=== PATIENT | female | born 1930 | race Caucasian/White ===

== ENCOUNTER → 2016-07-18 | Outpatient (CLI) | payer MEDICARE, BC ==
--- NOTE | 2016-07-18 11:44 | MM ---
Reason for exam: history of breast cancer, conservation therapy. Last mammogram was performed 1 year ago. History: Patient is postmenopausal and has history of breast cancer at age 72. Family history of breast cancer in maternal cousin and breast cancer in maternal aunt. Malignant stereotactic core biopsy of the right breast, May 22, 2003. Benign stereotactic core biopsy of the left breast, November 04, 2001. Core biopsy of the left breast. Core biopsy of the right breast. Lumpectomy of the right breast. Chemotherapy. Radiation therapy of the right breast. Took tamoxifen for 5 years beginning at age 74. Physical Findings: Nurse did not find any significant physical abnormalities on exam. MG 3D Diag Mammo W/Cad JOSELINE Bilateral CC and MLO view(s) were taken. Prior study comparison: July 14, 2015, bilateral MG 3d diag mammo w/cad JOSELINE. July 13, 2014, bilateral MG diagnostic mammo w CAD JOSELINE. July 07, 2013, CAD bilateral diagnostic mammogram. There are scattered fibroglandular densities. No significant new findings when compared with previous films. These results were verbally communicated with the patient and result sheet given to the patient on 07/18/16. ASSESSMENT: Benign, BI-RAD 2 RECOMMENDATION: Routine screening mammogram of both breasts in 1 year.
== END | disposition home or self-care (01) ==
LOC: RADMAMWWP 10:35
PROVIDERS: ATTEND Internal Medicine Hematology & Oncology
DX: Z08 Encounter for follow-up examination after completed treatment for malignant neoplasm (principal); Z85.3 Personal history of malignant neoplasm of breast
CPT/HCPCS: G0204; G0279

== ENCOUNTER → 2016-10-04 | Outpatient (CLI) | payer MEDICARE, BC ==
--- NOTE | 2016-10-04 12:00 | XR ---
EXAMINATION TYPE: XR lumbar spine 2 or 3V DATE OF EXAM: 10/04/2016 10:36 AM CLINICAL HISTORY: Low back pain for 2 years per patient. Spondylosis per order. TECHNIQUE: Frontal and lateral images of the lumbar spine are obtained. COMPARISON: None FINDINGS: Osseous structures are demineralized which is noted to lower radiographic sensitivity. The re are 5 lumbar type vertebral bodies identified. The lumbar spine shows dextroconvex scoliosis cent ered at L3 level. There is loss of normal lumbar lordosis on lateral images. There appears to be grad e 1 anterolisthesis of L5 on S1. Vertebral body heights are maintained. There is advanced disc space narrowing with sclerosis at L1-L2 level. There is moderate to advanced disc space narrowing with mild spurring at L2-L3 level. There i s advanced disc space narrowing with sclerosis and mild spurring at L4-L5 level. There is suboptimal evaluation of L5-S1 level with suspected moderate disc space narrowing. There is facet arthropathy in the lower lumbar spine. There is additional mild to moderate multilevel anterior and lateral spurring most pronounced at left L3-L4 level. Vascular calcification of overlyi ng abdominal aorta is noted.. IMPRESSION: Demineralization with loss of normal lumbar curvature, degenerative and other findings as detailed above.
== END | disposition home or self-care (01) ==
LOC: RADXRMAIN 10:11
PROVIDERS: ATTEND Internal Medicine
DX: M48.06 Spinal stenosis, lumbar region (principal); M46.86 Other specified inflammatory spondylopathies, lumbar region; M41.9 Scoliosis, unspecified
CPT/HCPCS: 72100

== ENCOUNTER → 2016-10-10 | Outpatient (CLI) | payer MEDICARE, BC ==
[~2016-10-10] MED LIST: REGADENOSON 0.4 MG/5 ML SYRINGE IV ONE
--- NOTE | 2016-10-10 12:13 | NM ---
EXAMINATION TYPE: NM stress lexiscan cardiolite DATE OF EXAM: 10/10/2016 11:33 AM COMPARISON: NONE HISTORY: Abnormal EKG per order. Family history of coronary artery disease and personal history of hy pertension. TECHNIQUE: After the intravenous administration of 9.6 mCi Tc 99m Sestamibi - Cardiolite resting SPE CT images acquired 45 minutes post injection. The patient received 0.4mg Lexiscan, 26.7 mCi Tc 99m Sestamibi - Stress images obtained [address] injection FINDINGS: Review of stress and rest SPECT images demonstrates no distinct perfusion abnormality. Gated analysi s shows normal wall motion with an estimated left ventricular ejection fraction of 73 %. IMPRESSION: No scintigraphic evidence for reversible ischemia.
--- NOTE | 2016-10-10 14:13 | EST ---
DATE OF SERVICE: 10/10/2016 AGE: 86Y SEX: F HT: 62" WT: 160 lbs. Lexiscan Cardiolite Stress Test *Heart Rate Blood Pressure *Rest: 67 Rest: 135/80 * *Max. Achieved: 88 Maximum BP: 171/84 85% PMHR: 113 100% PMHR: 133 *METS: - INDICATIONS: Abnormal EKG. MEDICATIONS: Lotrel, aspirin. Baseline rhythm is sinus mechanism, rate of 67, normal axis and intervals, poor R-wave progression. Baseline blood pressure 135/80 mmHg. Patient received an injection of Lexiscan. Electrocardiograph monitoring revealed no evidence of diagnostic ischemic ST deviation. Cardiolite was injected per protocol. CONCLUSION: 1. Nondiagnostic electrocardiograph stress testing. 2. Nuclear images will be reported separately.
== END | disposition home or self-care (01) ==
LOC: RADNMMAIN 08:43
PROVIDERS: ATTEND Internal Medicine
DX: I21.09 ST elevation (STEMI) myocardial infarction involving other coronary artery of anterior wall (principal)
CPT/HCPCS: 93017; 78452; A9500; J2785

== ENCOUNTER → 2016-12-18 | Outpatient (CLI) | payer MEDICARE, BC ==
[2016-12-18 12:12] VITALS: BP 133/80; PULSE 74; RESP 16; TEMP 96.9
--- NOTE | 2016-12-18 12:51 | P.HPIM ---
History of Present Illness H&P Date: 12/18/16 Chief Complaint: low back and left leg pain This is a 86-year-old patient referred by Dr. Be for chronic pain in low back and LLE with some numbness/tingling in LLE. Patient has been taking medications from primary care physician including only Tylenol medications with some relief. Patient denies adverse drug effects from medications. Patient also denies new-onset weakness, bowel/bladder incontinence, or any other signs or symptoms of cauda equina syndrome. There are no signs of acute intoxication, and no indications of medication diversion or overuse. Patient notes that pain worsens significantly with standing and walking, and improves with sitting, rest, ice and medication. Patient has used several types of medications for pain, including NSAIDS, TRAMADOL. Patient HAS NOT had surgery. Patient HAS NOT had injections previously. Patient HAS NOT had physical therapy recently but states that it did not help her previously. In addition to above, 13-point review of systems is also negative for chest pain , shortness of breath, changes in vision, changes in hearing, new onset weakness , abdominal pain, diarrhea, extreme fatigue, malaise, fever, skin changes, homicidal or suicidal ideation, or bowel or bladder incontinence. Vital Signs: Reviewed in EMR Gen: WDWN, AAOx3, NAD HEENT: NCAT, EOMI, hearing grossly normal Pulm: resp unlabored Abd: soft, NT, ND Neck: supple, trachea midline ROM in flexion lumbar spine: reduced ROM in extension lumbar spine: reduced Lumbar paravertebral tenderness: + Facet loading: +bilateral SI joint tenderness: + L side Julian's test: + L side Straight leg raise: + LLE at 5 degrees Neuro: CN II-XII grossly intact, muscle strength lower extremities decreased bilaterally Past Medical History Past Medical History: Cancer, Hearing Disorder / Deafness, Hyperlipidemia, Hypertension, Osteoarthritis (OA) Additional Past Medical History / Comment(s): RIGHT BREAST CANCER IN 2002. DIVERTICULITIS. History of Any Multi-Drug Resistant Organisms: None Reported Past Surgical History: Appendectomy, Bladder Surgery, Breast Surgery, Hysterectomy, Orthopedic Surgery Additional Past Surgical History / Comment(s): BILATERAL CATARACT SURGERY. RIGHT BREAST LUMPECTOMY. Past Anesthesia/Blood Transfusion Reactions: No Reported Reaction Past Psychological History: No Psychological Hx Reported Smoking Status: Never smoker Past Alcohol Use History: Rare Past Drug Use History: None Reported - Past Family History Mother Additional Family Medical History / Comment(s): "HEART PROBLEMS". Medications and Allergies Home Medications Medication Instructions Recorded Confirmed Type Acetaminophen [Tylenol] 500 mg PO HS PRN 12/18/16 12/18/16 History Aspirin 325 mg PO DAILY 12/18/16 12/18/16 History Cranberry Fruit Extract [Cranberry] 500 mg PO DAILY 12/18/16 12/18/16 History Melatonin 10 mg PO HS PRN 12/18/16 12/18/16 History Multivitamin [Multiple Vitamins] 1 tab PO DAILY 12/18/16 12/18/16 History Non-Formulary Drug [Non Formulary 1 tab PO BID 12/18/16 12/18/16 History Drug] amLODIPine BESYLATE/BENAZEPRIL 1 tab PO DAILY 12/18/16 12/18/16 History [Lotrel 10-40 mg Capsule] Allergies Allergy/AdvReac Type Severity Reaction Status Date / Time amoxicillin Allergy Nausea Unverified 12/18/16 11:46 Physical Exam Vitals: Vital Signs Temp Pulse Resp BP Pulse Ox 12/18/16 12:00 96.9 F L 74 16 133/80 100 Intake and Output 12/17/16 12/18/16 12/18/16 22:59 06:59 14:59 Other: Weight 72.575 kg Patient Weight 12/19/16 06:59 Weight 72.575 kg Results Comments: MRI lumbar spine demonstrates moderate to severe spinal canal stenosis at the L4 -L5 level with left and right neural foraminal stenosis. At the L2-L3 and L3- L4 levels there are diffuse disc bulges with facet arthropathy in both locations. At the L5-S1 level there is hypertrophic facet arthropathy with ligamentum flavum thickening and grade 1 anterolisthesis. There is also degenerative first S-shaped scoliosis of the lumbar spine with associated facet arthropathy and ligamentum flavum thickening noted. 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 Explanation: Opioid and psychological risk scores were reviewed. Diagnoses , prognoses, and multiple treatment options including but not limited to physical therapy, interventional therapies, adjuvant medical therapies, narcotic medication therapies, and surgery were discussed with the patient and all questions were answered to the patient's satisfaction. 2. Opioid agreement: no opioids prescribed today 3. Counseling: The patient was counseled extensively on BODY MASS INDEX, EXERCISE. Specifically, the patient was instructed regarding the importance of obesity, and exercise in the context of both chronic pain and overall health. 4. Procedures: LESI series (L4-L5 if possible, but L5-S1 OK if scoliosis makes procedure technically difficult) 5. Consultations: none 6. Investigations: none 7. Medications: none prescribed 8. Disposition: f/u for procedure as scheduled (patient to stop ASA for 4-5 days) PQRS measures: 1-Patient's medications are documented in the chart. 2-Tobacco use is negative, counseling given 3-Patient has not had a pneumococcal vaccine. 4-Advanced care planning discussed, patient unable to give. 5-Opioid contract NOT signed with the patient as no opioids given. 6-Pain positive, follow-up visit or procedure scheduled 7-Patient's blood pressure measured and documented, and patient will follow up with the primary care due to hypertension. 8-Patient's weight was measured, and body mass index ABOVE the normal limits, and counseling was done. Patient instructed to follow up with PCP. 9-Patient WAS NOT identified as an unhealthy alcohol user. Time with Patient: Greater than 30
== END | disposition home or self-care (01) ==
LOC: PNWHC3 11:41
PROVIDERS: ATTEND Anesthesiology
DX: M48.06 Spinal stenosis, lumbar region (principal); M99.73 Connective tissue and disc stenosis of intervertebral foramina of lumbar region; M47.816 Spondylosis without myelopathy or radiculopathy, lumbar region; M41.9 Scoliosis, unspecified; Z79.82 Long term (current) use of aspirin; Z79.899 Other long term (current) drug therapy; Z88.0 Allergy status to penicillin
CPT/HCPCS: 99211

== ENCOUNTER 2016-12-22 08:54 | Day surgery (SDC) | payer MEDICARE, BC ==
[2016-12-20 13:31] VITALS: BMI 28.3
[~2016-12-22 08:54] MED LIST changes: +LACTATED RINGERS 1,000 ML IV SCH; -REGADENOSON 0.4 MG/5 ML SYRINGE IV ONE
[2016-12-22 09:20] VITALS: TEMP 97.2
[2016-12-22] MEDS ORDERED: LIDOCAINE 1% 20 ML VIAL (10MG/ML) FOR IV START INTRADERMA ONE (09:24)
[2016-12-22] MEDS ORDERED: IOHEXOL 180 MG/ML 1 ML ML ONE (10:16)
[2016-12-22] MEDS ORDERED: MIDAZOLAM 2 MG/2 ML VIAL ONE (10:16)
[2016-12-22] MEDS ORDERED: fentaNYL (PF) 50 MCG/ML 2 ML AMP ONE (10:16)
[2016-12-22] MEDS ORDERED: DEXAMETHASONE SOD PHOS (MDV) 100 MG/10 ML VIAL ONE (10:16)
--- NOTE | 2016-12-22 10:35 | P.PCN ---
Date of Procedure: 12/22/16 Preoperative Diagnosis: Postoperative Diagnosis: Procedure(s) Performed: PREOPERATIVE DIAGNOSIS: 1- Lumbar Degenerative Disc Diseases 2-Lumbar spondylosis with Facet arthropathy without myelopathy. 3-lumbar spinal stenosis POSTOPERATIVE DIAGNOSIS: 1-Lumber Degenerative Disc Diseases 2-Lumbar spondylosis with Facet arthropathy without myelopathy. 3-lumbar spinal stenosis PROCEDURE 1. Lumbar epidural steroid injection under fluoroscopic guidance at the L5-S1 level. 2. Lumbar epidurogram. ANESTHESIA: Local with 1% lidocaine 3 ml and IV sedation with Versed 1 mg , and fentanyle 50 Mcg EBL: Minimal PROCEDURE INDICATION: The patient with low back pain and radiculitis symptoms unresponsive to conservative treatment. Fluoroscopy was used to optimize visualization of the needle placement and to maximize safety. PROCEDURE DESCRIPTION / TECHNIQUE: The patient was seen and identified in the preoperative area. Risks, benefits , complications including but not limited to infections ,bleeding ,allergic reaction to the medications ,nerve damage and not complete pain releife , and alternatives were discussed with the patient. The patient agreed to proceed with the procedure and signed the consent. IV was started, and vital signs were stable. Patient was taken to the OR and time out was completed. The patient was placed in the prone position on procedure table and a pillow was placed under the abdomen to reduce lumbar lordosis. The lumbosacral area was prepped and draped in the usual sterile fashion.ere closely monitored during the procedure. Conscious sedation was used during the procedure to decrease patients anxiety. Vital signs was monitered during the entire procedure. Using anterior-posterior fluoroscopy, the L5-S1 interlaminar space was identified and the skin over this site was marked and then infiltrated with 1% lidocaine subcutaneously. Subsequently, a 20-gauge Tuohy epidural needle was inserted and advanced toward the epidural space using the ``Loss of resistance technique and guided by AP and lateral fluoroscopy. The correct needle position in the epidural space was verified with the injection of 2 mL of the water soluble contrast dye Omnipaque 180 contrast and observing an excellent epidurogram with the epidural spread of the dye, after negative aspiration for blood and CSF and in the absence of paresthesias. Again after negative aspiration, a 6 ml mixture containing 20 mg of Dexamethasone and 2 ml of preservative free Normal Saline, and 2 ml of preservative free lidocaine 1% solution was injected and a washout of epidurogram was seen. Needle was withdrawn intact, skin was cleansed, and bandages were applied. COMPLICATIONS: None DISPOSITION / PLANS: The patient was placed in a supine position and transferred to the recovery area in a stable condition for observation. There was no evidence of lower extremity motor or sensory deficit after the procedure. Patient was discharged from the recovery room after meeting discharge criteria. Home discharge instructions were given to the patient by the staff. The patient was reexamined prior to discharge. The patient will schedule a follow up in the clinic in 2-4 weeks. Implants: Indications for Procedure: Operative Findings: Description of Procedure:
--- NOTE | 2016-12-22 10:47 | FL ---
EXAMINATION TYPE: FL guided pain mgmt statistic DATE OF EXAM: 12/22/2016 CLINICAL HISTORY: Low back pain. TECHNIQUE: Fluoroscopy. COMPARISON: None. FINDINGS: Fluoroscopic guidance was provided during pain relief procedure performed by Dr. Yanez . A total of 1 seconds of fluoroscopic time was utilized during the procedure and 1 spot image is ac quired. Single image acquired shows needle localization at L5 level in lumbar spine. IMPRESSION: As Above.
[2016-12-22] MEDS ORDERED: IV FLUID CONTINUATION 750 ML IV ONE (10:51)
[2016-12-22 10:56] VITALS: RESP 18
[2016-12-22 11:01] VITALS: BP 125/65; PULSE 64
== END 2016-12-22 11:18 | disposition home or self-care (01) ==
LOC: ORPAIN 08:54
PROVIDERS: ATTEND Specialist
DX: M51.16 Intervertebral disc disorders with radiculopathy, lumbar region (principal); M47.26 Other spondylosis with radiculopathy, lumbar region; M48.06 Spinal stenosis, lumbar region; M99.73 Connective tissue and disc stenosis of intervertebral foramina of lumbar region; M41.9 Scoliosis, unspecified; M46.96 Unspecified inflammatory spondylopathy, lumbar region; I10 Essential (primary) hypertension; E78.5 Hyperlipidemia, unspecified; M19.90 Unspecified osteoarthritis, unspecified site; H91.90 Unspecified hearing loss, unspecified ear; Z88.0 Allergy status to penicillin; Z79.82 Long term (current) use of aspirin; Z79.899 Other long term (current) drug therapy; Z85.3 Personal history of malignant neoplasm of breast; Z90.49 Acquired absence of other specified parts of digestive tract; Z90.710 Acquired absence of both cervix and uterus
CPT/HCPCS: 62323; 99152; J2250; Q9965; J3010; J1100

== ENCOUNTER 2017-01-25 07:46 | Day surgery (SDC) | payer MEDICARE, BC ==
[2017-01-23 10:03] VITALS: BMI 29.2
[2017-01-25 08:18] VITALS: RESP 16
--- NOTE | 2017-01-25 08:57 | P.PCN ---
Date of Procedure: 01/25/17 Preoperative Diagnosis: Left lumbar radiculopathy Postoperative Diagnosis: Same as above Procedure(s) Performed: Lumbar epidural steroid injection under fluoroscopic guidance Implants: Anesthesia: MAC, other (local with IV sedation) Surgeon: German Williamson Pathology: none sent Condition: stable Disposition: PACU Indications for Procedure: Operative Findings: Description of Procedure: Patient was seen in preop holding area consent was obtained. The patient then was brought into the procedure room and placed in prone position. Skin was prepped with Betadine 3 and draped in a sterile manner. Lidocaine 1% percent was used to numb the skin at the target point. I tried to get into the epidural space at the L4 5 level but the patient has severe spondylosis and I could not do that at the L4 5 then I decided to do this injection at the L5-S1 level in the left paramedian approach. I used 20-gauge 3-1/2 inch Touhy epidural needle with [id number] to air to identify the epidural space. There was positive [id number] to air at about 6 cm from skin negative aspiration for any CSF or blood and negative paresthesia. I then injected 1 mL of Omnipaque which showed typical epidurogram with AP and lateral views of fluoroscopy after that I injected 40 mg of Kenalog +2 MLS of Marcaine 0.25% +3 MLS of posterior free normal saline to a total volume of 6 MLS in epidural space. Patient tolerated procedure well.
--- NOTE | 2017-01-25 09:05 | FL ---
EXAMINATION TYPE: FL guided pain mgmt statistic DATE OF EXAM: 01/25/2017 FLUOROSCOPY Fluoroscopy time of 12 seconds was used during lumbar epidural steroid injection. 1 image/s document /s the procedure.
[2017-01-25] MEDS ORDERED: IV FLUID CONTINUATION 1,000 ML IV ONE (09:19)
[2017-01-25 09:33] VITALS: BP 117/73; PULSE 62
--- NOTE | 2017-01-29 09:55 | CDI ---
Dear Dr. Williamson, What type of sedation was used during this procedure? Your Procedure Note states "MAC, other". Please provide more specificity, such as moderate conscious sedation. IF moderate conscious was used, then we will need a completeted Pain Procedure Record with the correct Anesthesia Plan box checked and a Proc Stop time. This information is needed for correct reporting purposes. Please contact the hairmasters manager if you do not understand what is needed from you--Jovita Johnston [phone]. Thank you, Patrica CORREA
--- NOTE | 2017-02-23 15:32 | CDI ---
Dear Dr. Williamson, Thank you for your first query response that stated moderate conscious sedation was used, but we still need more information. We code and bill for the length of time the patient was under moderate conscious sedation. We calculate this time based off of the time that fentanyl/versed was given and until the procedure stop time. The procedure stop time is blank on the Pain Procedure Record. What time did the procedure end? Please contact the medical coding auditor if you do not understand what is needed from you--Jovita Johnston [phone]. Thank you, Patrica CORREA
== END 2017-01-25 09:55 | disposition home or self-care (01) ==
LOC: ORPAIN 07:46
PROVIDERS: ATTEND Anesthesiology
DX: M47.26 Other spondylosis with radiculopathy, lumbar region (principal); I10 Essential (primary) hypertension; Z91.09 Other allergy status, other than to drugs and biological substances
CPT/HCPCS: 62323; 99152; 99153; J2250; J3301; J3010

== ENCOUNTER 2017-02-22 07:20 | Day surgery (SDC) | payer MEDICARE, BC ==
[2017-02-16 15:17] VITALS: BMI 29.2
[2017-02-22] MEDS ORDERED: LIDOCAINE 1% 20 ML VIAL (10MG/ML) FOR IV START INTRADERMA ONE (07:39)
[2017-02-22] MEDS ORDERED: LACTATED RINGERS 1,000 ML IV ONE ×2 (07:41→09:42)
[2017-02-22 07:57] VITALS: TEMP 97.8
[2017-02-22] MEDS ORDERED: LACTATED RINGERS 1,000 ML IV SCH (08:15)
--- NOTE | 2017-02-22 09:17 | FL ---
EXAMINATION TYPE: FL guided pain mgmt statistic DATE OF EXAM: 02/22/2017 CLINICAL HISTORY: Low back pain. TECHNIQUE: Fluoroscopy. COMPARISON: None. FINDINGS: Fluoroscopic guidance was provided during pain relief procedure performed by Dr. Lai . A total of 12 seconds of fluoroscopic time was utilized during the procedure and two spot images are acquired. Images acquired shows needle localization at lumbosacral junction epidural space. IMPRESSION: As Above.
[2017-02-22 09:37] VITALS: BP 136/75; PULSE 59; RESP 18
--- NOTE | 2017-02-22 12:24 | P.PCN ---
Date of Procedure: 02/22/17 Preoperative Diagnosis: Postoperative Diagnosis: Procedure(s) Performed: Implants: Surgeon: Dewayne Lai Pathology: none sent Condition: stable Disposition: PACU Indications for Procedure: Operative Findings: Description of Procedure: PREOPERATIVE DIAGNOSIS: 1-Lumbar radiculitis. POSTOPERATIVE DIAGNOSIS: 1-Lumbar radiculitis. PROCEDURE 1. Lumbar epidural steroid injection under fluoroscopic guidance at the L5-S1 level. 2. Lumbar epidurogram. ANESTHESIA: Local with 1% lidocaine; IV sedation with Versed/fentanyl. EBL: Minimal PROCEDURE INDICATION: The patient with low back pain and radiculitis symptoms unresponsive to conservative treatment. Fluoroscopy was used to optimize visualization of the needle placement and to maximize safety. Two weeks' relief from LESI #1 and #2 apiece, and patient presents for LESI #3 today. No use of blood thinners. PROCEDURE DESCRIPTION / TECHNIQUE: The patient was seen and identified in the preoperative area. Risks, benefits, complications, and alternatives were discussed with the patient, including but not limited to bleeding, infection, nerve damage, allergic reactions to medications, and incomplete pain relief. The patient agreed to proceed with the procedure and signed the consent after all questions were answered. IV was started, and vital signs were stable. Patient was taken to the OR and time out was completed to confirm patient position, procedure, laterality of pain, and allergies. The patient was placed in the prone position on procedure table and a pillow was placed under the abdomen to reduce lumbar lordosis. The lumbosacral area was prepped and draped in the usual sterile fashion. Critical pause was taken. Vital signs were closely monitored during the procedure. Conscious sedation was used during the procedure to decrease patients anxiety. Using anterior-posterior fluoroscopy, the L5-S1 interlaminar space was identified and the skin over this site was marked and then infiltrated with 1% lidocaine subcutaneously. Subsequently, a 20-gauge 3.5-inch Tuohy epidural needle was inserted and advanced toward the epidural space using the Loss of resistance technique and guided by AP and lateral fluoroscopy. The correct needle position in the epidural space was verified with the injection of 2 mL of the water soluble contrast dye Omnipaque 300 contrast and observing an excellent epidurogram with the epidural spread of the dye, after negative aspiration for blood and CSF and in the absence of paresthesias. Again after negative aspiration, a 8 ml mixture containing 20 mg of PF Decadron and 5 ml of preservative free Normal Saline, and 2 ml of preservative free lidocaine 1% solution was injected and a washout of epidurogram was seen. Needle was withdrawn intact, skin was cleansed, and bandages were applied. COMPLICATIONS: None COMMENTS: DISPOSITION / PLANS: The patient was placed in a supine position and transferred to the recovery area in a stable condition for observation. There was no evidence of lower extremity motor or sensory deficit after the procedure. Patient was discharged from the recovery room after meeting discharge criteria. Home discharge instructions were given to the patient by the staff. The patient was reexamined prior to discharge and there were no issues. The patient will schedule a follow up in the clinic in 2-4 weeks.
== END 2017-02-22 09:53 | disposition home or self-care (01) ==
LOC: ORPAIN 07:20
PROVIDERS: ATTEND Anesthesiology
DX: M54.16 Radiculopathy, lumbar region (principal)
CPT/HCPCS: 62323; J2250; J1100; Q9965; J3010; 99152

== ENCOUNTER → 2017-04-03 | Outpatient (CLI) | payer MEDICARE, BC ==
[2017-04-03 13:16] VITALS: BP 118/74; PULSE 82; RESP 18; TEMP 97.6
--- NOTE | 2017-04-03 13:39 | P.PN ---
Progress Note - Text Patient returns for followup for chronic back pain with radiation to LLE. Patient recently underwent LESI x 3 with only 1-2 days' relief from each. Patient continues on occasional Tylenol medications for pain with some relief. Patient denies adverse drug effects from medications. Today, pt denies new- onset weakness, bowel/bladder incontinence, or any other signs or symptoms of cauda equina syndrome. There are no signs of acute intoxication, and no indications of medication diversion or overuse. In addition to above, 13-point review of systems is also negative for chest pain , shortness of breath, changes in vision, changes in hearing, new onset weakness , abdominal pain, diarrhea, extreme fatigue, malaise, fever, skin changes, homicidal or suicidal ideation, or bowel or bladder incontinence. Vital Signs: Reviewed in EMR Gen: WDWN, AAOx3, NAD HEENT: NCAT, EOMI, hearing grossly normal Pulm: resp unlabored Abd: soft, NT, ND Neck: supple, trachea midline ROM in flexion lumbar spine: reduced ROM in extension lumbar spine: reduced Lumbar paravertebral tenderness: + Facet loading: + L side, neg R side SI joint tenderness: + L side Julian's test: neg Straight leg raise: + LLE at 10 degrees Neuro: CN II-XII grossly intact, muscle strength lower extremities PRESERVED Imaging: Reviewed in EMR Assessment: 1. lumbar spinal stenosis 2. lumbar spondylosis without myelopathy 3. chronic pain syndrome Plan: 1. Explanation: Opioid and psychological risk scores were reviewed. Diagnoses , prognoses, and multiple treatment options including but not limited to physical therapy, interventional therapies, adjuvant medical therapies, narcotic medication therapies, and surgery were discussed with the patient and all questions were answered to the patient's satisfaction. 2. Opioid agreement: no opioids prescribed today 3. Counseling: The patient was counseled extensively on BODY MASS INDEX, EXERCISE. Specifically, the patient was instructed regarding the importance of weight control, and exercise in the context of both chronic pain and overall health. 4. Procedures: left lumbar MBB L2-S1 5. Consultations: None 6. Investigations: None 7. Medications: none prescribed 8. Disposition: f/u for procedure as scheduled PQRS measures: 1-Patient's medications are documented in the chart. 2-Tobacco use is negative 3-Patient has not had a pneumococcal vaccine. 4-Advanced care planning discussed, patient unable to give. 5-Opioid contract NOT signed with the patient. 6-Pain positive, follow-up visit or procedure scheduled 7-Patient's blood pressure measured and documented, and WNL. 8-Patient's weight was measured, and body mass index ABOVE the normal limits, and counseling was done. Patient instructed to follow up with PCP. 9-Patient WAS NOT identified as an unhealthy alcohol user.
== END ==
LOC: PNWHC3 12:57
PROVIDERS: ATTEND Anesthesiology
DX: M48.06 Spinal stenosis, lumbar region (principal); M47.816 Spondylosis without myelopathy or radiculopathy, lumbar region
CPT/HCPCS: 99211

== ENCOUNTER 2017-04-16 06:52 | Day surgery (SDC) | payer MEDICARE, BC ==
[2017-04-10 14:48] VITALS: BMI 28.3
[2017-04-16] MEDS ORDERED: LACTATED RINGERS 1,000 ML IV ONE ×2 (07:45→08:05)
[2017-04-16 08:05] VITALS: TEMP 97.7
[2017-04-16] MEDS ORDERED: LIDOCAINE 1% 20 ML VIAL (10MG/ML) FOR IV START INTRADERMA ONE (08:09)
--- NOTE | 2017-04-16 08:45 | P.PCN ---
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 POSTOPERATIVE DIAGNOSIS: Lumbar spondylosis without myelopathy and facet arthropathy. PROCEDURE DESCRIPTION: Patient presents for LEFT L3-L4, L4-L5 and L5-S1 diagnostic medial branch blocks under fluoroscopic guidance. The procedure is performed using fluoroscopic guidance during needle placement to assure proper position and maximize safety. ANESTHESIA: Local with 1% lidocaine; conscious sedation with Versed only EBL: Minimal PROCEDURE INDICATION: Patient with scoliosis and lumbar facet arthropathy signs and symptoms unresponsive to conservative therapy and LESIs, here for diagnostic medial branch block #1. Pt has been off baby aspirin for five days. PROCEDURE DESCRIPTION: The patient was seen and identified in the preoperative area. Risks, benefits, complications, and alternatives were discussed with the patient (including but not limited to incomplete pain relief, bleeding, infection, nerve damage, and allergies to medications), the patient agreed to proceed with the procedure and signed the consent after all questions were answered. Patient was taken to the OR and time out was completed to verify proper patient, position, laterality of pain, and allergies. Pt was placed in the prone position and a pillow was placed under the abdomen to reduce lumbar lordosis. The lumbosacral area was prepped and draped in the usual sterile fashion. Using oblique fluoroscopy, the eye of the "Eagle dog" of left L4 vertebral body , which corresponds to the path of the medial branch originating from the level above, which is L3 in this case, was identified. Subsequently, a 22-gauge 3.5- inch spinal needle was inserted under fluoroscopic guidance toward the eye of the "Eagle dog" of the right L4 vertebral body, corresponding to the junction of the superior articular process and the transverse process of the pedicle of the same level. After needle tip confirmation on lateral view and after negative aspiration for CSF and blood and without paresthesias, 1 mL of a 6 ml solution of 0.5% preservative-free bupivacaine and 40 mg Kenalog was injected. Subsequently the needle was withdrawn intact and the same procedure was repeated for the left L2, left L4, and left L5 medial branches which correspond to the sensory innervation of the left L3-L4, L4-L5, and L5-S1 facet joints. Needle was withdrawn intact after each injection. At the end of the procedure, the skin was cleansed and bandages were applied. COMPLICATIONS: None. DISPOSITION/PLAN: The patient taken to the recovery area after the procedure in a stable condition for observation. Patient was reexamined prior to discharge and there were no issues. Patient was discharged home, accompanied by an adult, after meeting discharged criteria. Discharge instructions were give to the patient by the staff. Patient was specifically instructed not to drive today and to rest for the rest of the day. If relief, we will plan to repeat this in 4-6 weeks.
[2017-04-16] MEDS ORDERED: IV FLUID CONTINUATION 1,000 ML IV ONE (08:51)
--- NOTE | 2017-04-16 08:58 | FL ---
Fluoroscopy History: l. facet inj-9 sec l. lumbar facets-9 sec-3 paper films
[2017-04-16 09:24] VITALS: BP 146/84; PULSE 64; RESP 16
== END 2017-04-16 09:37 | disposition home or self-care (01) ==
LOC: ORPAIN 06:52
PROVIDERS: ATTEND Anesthesiology
DX: G89.4 Chronic pain syndrome (principal); M47.816 Spondylosis without myelopathy or radiculopathy, lumbar region; M46.96 Unspecified inflammatory spondylopathy, lumbar region; Z88.0 Allergy status to penicillin
CPT/HCPCS: 99152; 64493; 64494; 64495; J2250; J1100

== ENCOUNTER 2017-05-07 08:38 | Day surgery (SDC) | payer MEDICARE, BC ==
[2017-05-02 13:14] VITALS: BMI 28.3
[2017-05-07 09:19] VITALS: RESP 16; TEMP 97.6
[2017-05-07] MEDS ORDERED: LIDOCAINE 1% 20 ML VIAL (10MG/ML) FOR IV START INTRADERMA ONE (09:19)
--- NOTE | 2017-05-07 09:49 | P.PCN ---
Date of Procedure: 05/07/17 Procedure(s) Performed: PREOPERATIVE DIAGNOSIS : 1- Lumbar spondylosis with Facet Arthropathy without myelopathy . 2- Lumber degenerative disc disease POSTOPERATIVE DIAGNOSIS: 1- Lumbar spondylosis with Facet Arthropathy without myelopathy . 2- Lumber degenerative disc disease PROCEDURE: Diagnostic Left L3 -4 , L4 -5 , and L5-S1 medial branch block under fluoroscopy ANESTHESIA: Local with 1% lidocaine 3 ml ; IV sedation with Versed 2 mg EBL: Minimal COMPLICATION: None. IV FLUIDS: 100 mL of normal saline. PROCEDURE INDICATION: Chronic low back pain secondary to Facet arthropathy unresponsive to conservative treatment. PROCEDURE DESCRIPTION: the patient was seen and identified in the preop holding area , risks and benefits and possible complications of the procedure and alternative were discussed with the patient, and the patient agreed to proceed with the procedure and signed the consent IV was started and vital signs monitored during the procedure and fluoroscopy was used to maximize the benefit and accuracy of the needle placement, and sedation was given to decrease patient anxiety, patient was taken to the procedure room and placed in prone position vital signs monitored in the back prepped with chlorhexidine X3 then under strict sterile technique using a right oblique fluoroscopy ,the junction of the transverse process and the superior articulating process of the Left L3- 4 , L4- 5, and L5-S1 vertebra which corresponding to the fluoroscopy image of the eye of the Eagle dog on the block side for the medial branches and subsequently , after local infiltration of skin and subcu tissuies with lidocaine 1% one mL at each level ,then 25- gauge Quincke-type needles , 3 needle was used , each one of them placed at the junction of the base of the transverse process and the superior articular process at the appropriate level, and the needle was advanced until the periosteum contacted, needle placement confirmed with AP oblique and lateral view and after appropriate needle placement confirmed, and after negative aspiration for heme and CSF and there was no paresthesia 1-1/2 mL of Marcaine 0.5% mixed with 40 mg Kenalog , then half mL injected at each level after negative aspiration the needle subsequentely removed , and a bandage applied after the skin was cleaned the cleaning solution patient taken to recovery room in stable condition and monitors in the recovery room for 20-30 minutes and discharged home in stable condition after discharge criteria met and patient will follow up with the pain clinic in 2-4 weeks
[2017-05-07] MEDS ORDERED: IV FLUID CONTINUATION 900 ML IV ONE (09:56)
--- NOTE | 2017-05-07 10:10 | FL ---
EXAMINATION TYPE: FL guided pain mgmt statistic DATE OF EXAM: 05/07/2017 CLINICAL HISTORY: Low back pain. TECHNIQUE: Fluoroscopy. COMPARISON: None. FINDINGS: Fluoroscopic guidance was provided during pain relief procedure performed by Dr. Yanez . A total of 11 seconds of fluoroscopic time was utilized during the procedure and two spot images a re acquired. Images acquired shows needle localization at several levels in the lower lumbar spine. IMPRESSION: As Above.
[2017-05-07 10:14] VITALS: BP 130/79; PULSE 66
== END 2017-05-07 10:35 | disposition home or self-care (01) ==
LOC: ORPAIN 08:38
PROVIDERS: ATTEND Specialist
DX: G89.29 Other chronic pain (principal); M47.816 Spondylosis without myelopathy or radiculopathy, lumbar region; M46.96 Unspecified inflammatory spondylopathy, lumbar region; M51.36 Other intervertebral disc degeneration, lumbar region; I10 Essential (primary) hypertension; K57.92 Diverticulitis of intestine, part unspecified, without perforation or abscess without bleeding; Z88.1 Allergy status to other antibiotic agents
CPT/HCPCS: 64493; 64494; 64495; 99152; J2250; J3301

== ENCOUNTER → 2017-07-20 | Outpatient (CLI) | payer MEDICARE, BC ==
--- NOTE | 2017-07-20 12:11 | MM ---
Reason for exam: additional evaluation requested from prior study. Last mammogram was performed 1 year ago. History: Patient is postmenopausal and has history of breast cancer at age 72. Family history of breast cancer in maternal cousin and breast cancer in maternal aunt. Malignant stereotactic core biopsy of the right breast, May 22, 2003. Benign stereotactic core biopsy of the left breast, November 04, 2001. Core biopsy of the left breast. Core biopsy of the right breast. Lumpectomy of the right breast. Chemotherapy. Radiation therapy of the right breast. Took tamoxifen for 5 years beginning at age 74. Physical Findings: Nurse did not find any significant physical abnormalities on exam. MG 3D Diag Mammo W/Cad JOSELINE Bilateral CC and MLO view(s) were taken. Prior study comparison: July 18, 2016, bilateral MG 3d diag mammo w/cad JOSELINE. July 14, 2015, bilateral MG 3d diag mammo w/cad JOSELINE. Small spiculated density left 12 o'clock 5.8cm from nipple. This finding is changed when compared with previous exams. These results were verbally communicated with the patient and result sheet given to the patient on 07/20/17. ASSESSMENT: Incomplete: need additional imaging evaluation, BI-RAD 0 RECOMMENDATION: Ultrasound of the left breast.
--- NOTE | 2017-07-20 12:13 | USB ---
Reason for exam: additional evaluation requested from abnormal screening. History: Patient is postmenopausal and has history of breast cancer at age 72. Family history of breast cancer in maternal cousin and breast cancer in maternal aunt. Malignant stereotactic core biopsy of the right breast, May 22, 2003. Benign stereotactic core biopsy of the left breast, November 04, 2001. Core biopsy of the left breast. Core biopsy of the right breast. Lumpectomy of the right breast. Chemotherapy. Radiation therapy of the right breast. Took tamoxifen for 5 years beginning at age 74. US Breast Limited LT Left breast ultrasound demonstrates a 10 x 9 x 9mm irregular shadowing hypoechoic solid lesion at 12 o'clock 6cm from nipple. These results were verbally communicated with the patient and result sheet given to the patient on 07/20/17. ASSESSMENT: Highly suggestive of malignancy, BI-RAD 5 RECOMMENDATION: Ultrasound core biopsy of the left breast. Called Dr. Ariza with mammographic findings and has scheduled an appointment for the patient for 07/26/17 at 1:[address] Gomez. PRELIMINARY REPORT CALLED AND FAXED TO DR. GOMEZ ON 07/20/17.
== END | disposition home or self-care (01) ==
LOC: RADMAMWWP 10:40
PROVIDERS: ATTEND Internal Medicine Hematology & Oncology
DX: Z08 Encounter for follow-up examination after completed treatment for malignant neoplasm (principal); Z85.3 Personal history of malignant neoplasm of breast
CPT/HCPCS: 77066; 76642; G0279

== ENCOUNTER → 2017-08-06 | Day surgery (SDC) | payer MEDICARE, BC ==
[2017-08-06 13:25] VITALS: RESP 12
--- NOTE | 2017-08-06 14:29 | USB ---
EXAMINATION TYPE: US biopsy breast VAD LT DATE OF EXAM: 08/06/2017 CLINICAL HISTORY: R92.8 ABN MAMMOGRAM. TECHNIQUE: Ultrasound guided core biopsy of left 12:00 breast. COMPARISON: NONE FINDINGS: The procedure of ultrasound guided core biopsy was explained to the patient. Benefits, alternatives, and risks were discussed. An informed consent was then obtained. The patient was placed in supine positioning for imaging and for the procedure. The overlying skin was prepped and draped in usual sterile fashion. Lidocaine buffered with bicarbonate was used as anesthetic into the skin and subcutaneous tissue up to area of concern in the left breast. A jasmin was made with surgical scalpel. Under ultrasound guidance, a 12-gauge vacuum assisted biopsy gun device was used to obtain 3 core samples. Following this, a biopsy clip was left in lesion. The patient tolerated the procedure well without any immediate complication. The patient was kept in the radiology department for short stay after the procedure and then discharged home in stable condition. IMPRESSION: Successful, uncomplicated ultrasound guided core biopsy of area of concern in the left 12:00 breast, full pathology results to follow. 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 SEE SURGICAL PATHOLOGY CANCER CASE SUMMARY AND COMMENT. Recommendation Surgical consult of the left breast. MADELINE
--- NOTE | 2017-08-06 14:38 | MM ---
Reason for exam: additional evaluation requested from abnormal screening. Last mammogram was performed 1 month ago. History: Patient is postmenopausal and has history of breast cancer at age 72. Family history of breast cancer in maternal cousin and breast cancer in maternal aunt. Malignant stereotactic core biopsy of the right breast, May 22, 2003. Benign stereotactic core biopsy of the left breast, November 04, 2001. Core biopsy of the left breast. Core biopsy of the right breast. Lumpectomy of the right breast. Chemotherapy. Radiation therapy of the right breast. Took tamoxifen for 5 years beginning at age 74. MG Diagnostic Mammo LT Wo CAD CC and MLO view(s) were taken of the left breast. Prior study comparison: July 20, 2017, bilateral MG 3d diag mammo w/cad JOSELINE. July 18, 2016, bilateral MG 3d diag mammo w/cad JOSELINE. ASSESSMENT: Post procedure mammogram for marker placement RECOMMENDATION: Ultrasound of the left breast in 6 months. PENDING PATHOLOGY RESULTS.
[2017-08-06 14:47] VITALS: BP 125/72; PULSE 77; TEMP 98.7
== END | disposition home or self-care (01) ==
LOC: RADUSWWP 13:02
PROVIDERS: ATTEND Surgery
DX: C50.912 Malignant neoplasm of unspecified site of left female breast (principal); Z85.3 Personal history of malignant neoplasm of breast; Z80.3 Family history of malignant neoplasm of breast; Z92.21 Personal history of antineoplastic chemotherapy; Z92.3 Personal history of irradiation
CPT/HCPCS: 88305; 88342; 88341; 77065; 19083; A4648; J2001; 88361

== ENCOUNTER → 2018-03-21 | Outpatient (CLI) | payer MEDICARE, BC ==
--- NOTE | 2018-03-21 11:48 | MM ---
Reason for exam: follow-up at short interval from prior study. Last mammogram was performed 7 months ago. History: Patient is postmenopausal and has history of breast cancer at age 87. Family history of breast cancer in maternal cousin and breast cancer in maternal aunt. Malignant US biopsy breast VAD LT of the left breast, August 06, 2017. Malignant stereotactic core biopsy of the right breast, May 22, 2003. Benign stereotactic core biopsy of the left breast, November 04, 2001. Core biopsy of the left breast. Core biopsy of the right breast. Lumpectomy of the right breast. Chemotherapy. Radiation therapy of the right breast. Took tamoxifen for 5 years beginning at age 74. Physical Findings: Nurse did not find any significant physical abnormalities on exam. MG 3D Diag Mammo W/Cad LT CC and MLO view(s) were taken of the left breast. Prior study comparison: August 06, 2017, left breast MG diagnostic mammo LT wo CAD. July 20, 2017, bilateral MG 3d diag mammo w/cad JOSELINE. There are scattered fibroglandular densities. Previous mammotome biopsy in the left breast, prior ribbon clip removed. Scar marker on breast. These results were verbally communicated with the patient and result sheet given to the patient on 03/21/18. ASSESSMENT: Benign, BI-RAD 2 RECOMMENDATION: Follow-up diagnostic mammogram of both breasts in 6 months.
== END | disposition home or self-care (01) ==
LOC: RADMAMWWP 09:54
PROVIDERS: ATTEND Surgery
DX: Z08 Encounter for follow-up examination after completed treatment for malignant neoplasm (principal); Z85.3 Personal history of malignant neoplasm of breast
CPT/HCPCS: 77065; G0279; 77061

== ENCOUNTER → 2018-03-21 | Outpatient (CLI) | payer MEDICARE, BC ==
--- NOTE | 2018-03-21 16:28 | BD ---
EXAMINATION TYPE: Axial Bone Density DATE OF EXAM: 03/21/2018 CLINICAL HISTORY: Height: 61inches Weight: 156 FRAX RISK QUESTIONS: Alcohol (3 or more units per day): no Family History (Parent hip fracture): no Glucocorticoids (More than 3mos): no (Ex: prednisone, prednisolone, methylprednisolone, dexamethasone, and hydrocortisone). History of Fracture in Adulthood: toes Secondary Osteoporosis: 1. Type 1 Diabetes: no 2. Hyperthyroidism: no 3. Menopause before 45: no 4. Malnutrition: no 5. Chronic liver disease: no Rheumatoid Arthritis: no Current Tobacco Use: no RISK FACTORS HISTORY OF: Family History of Osteoporosis: unsure Active: somewhat Diet low in dairy products/other sources of calcium: no Postmenopausal woman: yes Take estrogen and/or progesterone medications: no Lost more than 2 inches in height since high school: possibly, was about 63 inches in 2001 Frequent falls: yes Poor Health: unsure Hyperparathyroidism: no Adrenal Insufficiency: no MEDICATIONS: Prednisone or other steroids: no Thyroid Medications: no Osteoporosis Medications: unsure Additional Medications: vitamins ; still taking arimidex Additional History: Hx breast CA, took antineoplastic 5 years; 2017 several Fl guided pain management procedures on lower back; knee replacement; dislocated shoulder EXAM MEASUREMENTS: Bone mineral densitometry was performed using the [employer] System. Bone mineral density as measured about the Lumbar spine is: ----- L1-L4(G/cm2): 1.348 T Score Values are as follows: ----- L2: 1.6 ----- L3: 2.0 ----- L4: 2.1 ----- L1-L4: 1.4 Bone mineral density has: Increased 38.7% since study of: 09/20/2001 Bone mineral density about the R hip (g/cm2): 0.746 Bone mineral density about the L hip (g/cm2): 0.768 T Score values are as follows: -----R Neck: -2.1 -----L Neck: -1.9 -----R Total: -1.7 -----L Total: -1.1 Bone mineral density has: Decreased -5.7% since study of: 09/20/2001 IMPRESSION: Osteopenia (T Score between -2.5 and -1). There is slightly increased risk of fracture and the patient may be considered for treatment. Re-Screen 2-5 years. NOTE: T-SCORE=SD OF THE YOUNG ADULT MEAN.
== END | disposition home or self-care (01) ==
LOC: RADBDWWP 09:58
PROVIDERS: ATTEND Internal Medicine Hematology & Oncology
DX: C50.812 Malignant neoplasm of overlapping sites of left female breast (principal); M85.80 Other specified disorders of bone density and structure, unspecified site; Z79.890 Hormone replacement therapy
CPT/HCPCS: 77080

== ENCOUNTER → 2018-11-28 | Outpatient (CLI) | payer MEDICARE, BC ==
--- NOTE | 2018-11-28 10:08 | MM ---
Reason for exam: additional evaluation requested from prior study. Last mammogram was performed 8 months ago. History: Patient is postmenopausal and has history of breast cancer at age 87. Family history of breast cancer in maternal cousin and breast cancer in maternal aunt. Malignant US biopsy breast VAD LT of the left breast, August 06, 2017. Malignant stereotactic core biopsy of the right breast, May 22, 2003. Benign stereotactic core biopsy of the left breast, November 04, 2001. Core biopsy of the left breast. Core biopsy of the right breast. Lumpectomy of the right breast. Chemotherapy. Radiation therapy of the right breast. Took tamoxifen for 5 years beginning at age 74. Physical Findings: Nurse did not find any significant physical abnormalities on exam. MG 3D Diag Mammo W/Cad JOSELINE Bilateral CC and MLO view(s) were taken. Prior study comparison: March 21, 2018, left breast MG 3d diag mammo w/cad LT. August 06, 2017, left breast MG diagnostic mammo LT wo CAD. The breast tissue is heterogeneously dense. This may lower the sensitivity of mammography. Finding #1: Architectural distortion in the upper outer quadrant of the right breast consistent with post surgical change. Finding #2: There are typically benign calcifications in the left breast. There is a chronic nodularity in the left breast. No significant changes in finding since March 21, 2018 and August 06, 2017. These results were verbally communicated with the patient and result sheet given to the patient on 11/28/18. ASSESSMENT: Benign, BI-RAD 2 RECOMMENDATION: Follow-up diagnostic mammogram of both breasts in 1 year.
== END ==
LOC: RADMAMWWP 09:21
PROVIDERS: ATTEND Internal Medicine Hematology & Oncology
DX: R92.8 Other abnormal and inconclusive findings on diagnostic imaging of breast (principal); Z85.3 Personal history of malignant neoplasm of breast
CPT/HCPCS: 77066; G0279; 77062

== ENCOUNTER → 2018-11-28 | Outpatient (CLI) | payer MEDICARE, BC | END | disposition home or self-care (01) | LOC: RADBDWWP 09:24 | PROVIDERS: ATTEND Internal Medicine | DX: Z53.9 Procedure and treatment not carried out, unspecified reason (principal) ==